=== PATIENT | female | born 2000 | race Caucasian/White ===

== ENCOUNTER 2020-08-07 17:04 | Emergency (ER) | payer OTHER ==
[~2020-08-07] VITALS: Ht 162.6 cm; Wt 100.2 kg
[2020-08-07] MEDS ORDERED: ACYCLOVIR 200 MG CAPSULE PO ONE (17:45)
--- NOTE | 2020-08-07 17:54 | PHYS DOC ---
Past History Past Medical History: No Pertinent History Past Surgical History: Other Additional Past Surgical Histo: D&C Smoking: Non-smoker Alcohol Use: None Drug Use: None Adult General Chief Complaint Chief Complaint: VAGINAL PROBLEM HPI HPI Patient is a 20-year-old female patient 3 para 1 with 1 currently 31 weeks presenting to the ED today complaining of vaginal sores that began 3 days ago. Patient states she 3 days ago she dyed her hair and used a cleaning rag to clean her body including vaginal but developed sores in her vagina only. Review of Systems Review of Systems Constitutional: Denies fever or chills [] GI: Reports . Denies abdominal pain, nausea, vomiting, bloody stools or diarrhea [] : Reports vaginal swabs denies dysuria or hematuria [] Musculoskeletal: Denies back pain or joint pain [] Integument: Denies rash or skin lesions [] Neurologic: Denies headache, focal weakness or sensory changes [] All other systems were reviewed and found to be within normal limits, except as documented in this note. Current Medications Current Medications Current Medications Medications (Trade) Dose Ordered Sig/Neto Start Time Stop Time Status Last Admin Dose Admin Acyclovir (Zovirax) 400 mg 1X ONCE 08/07/20 17:45 08/07/20 17:46 UNV Allergies Allergies Allergies Coded Allergies Type Severity Reaction Last Updated Verified No Known Drug Allergies 08/24/14 No Physical Exam Physical Exam Constitutional: Well developed, well nourished, no acute distress, non-toxic appearance. [] Abdomen: Gravid abdomen. Bowel sounds normal, soft, no tenderness, no masses, no pulsatile masses. [] Pelvic exam was not possible due to pain, exterior vagina including labia majora, labia minora are covered with grouped blisterlike lesions, some of them are open, appears to be herpes infection Skin: Warm, dry, no erythema, no rash. [] Back: No tenderness, no CVA tenderness. [] Extremities: No tenderness, no cyanosis, no clubbing, ROM intact, no edema. [] Neurologic: Alert and oriented X 3, normal motor function, normal sensory function, no focal deficits noted. [] Psychologic: Affect normal, judgement normal, mood normal. [] Current Patient Data Vital Signs Vital Signs Date Time Temp Pulse Resp B/P (MAP) Pulse Ox O2 Delivery O2 Flow Rate FiO2 1/14/21 17:12 98.2 106 16 124/68 (86) 100 EKG EKG [] Radiology/Procedures Radiology/Procedures [] Heart Score Risk Factors: Risk Factors: DM, Current or recent (<one month) smoker, HTN, HLP, family history of CAD, obesity. Risk Scores: Risk Factors: DM, Current or recent (<one month) smoker, HTN, HLP, family history of CAD, obesity. Course & Med Decision Making Course & Med Decision Making Pertinent Labs and Imaging studies reviewed. (See chart for details) This is a 20-year-old female patient 3 para 1 with 1 currently 31 weeks presenting to the ED today with vaginal lesions. Initially patient stated she used to clean her body after diarrhea. Could have caused this. Physical exam is consistent with herpes. Patient was swabbed for herpes. Patient was started on acyclovir. Spoke to patient's ASSISTANT WAREHOUSE MANAGER on-call who requested we treat her for herpes and have her follow-up in the clinic. heart rate 140s to 150s. UA+ for UTI stated on cephalaxin. Fol low-up with OB next week. Dragon Disclaimer Dragon Disclaimer This electronic medical record was generated, in whole or in part, using a voice recognition dictation system. Departure Departure: Impression: Primary Impression: Herpes genitalia Additional Impression: UTI (urinary tract infection) Disposition: 01 DC HOME SELF CARE/HOMELESS Condition: STABLE Referrals: ARCELIA SÁNCHEZ (PCP) Follow up with your OBGYN next week Patient Instructions: Genital Herpes, - Urinary Tract Infection Additional Instructions: Please follow-up with your ASSISTANT WAREHOUSE MANAGER. Please keep your vaginal area clean and dry. Do no have intercourse until seen by OBYN. Complete your antibiotics and acyclovir Scripts Acyclovir (ACYCLOVIR) 400 Mg Tablet 1 TAB PO TID, #30 TAB Prov: MUTUNGA,CHAVO INCLUSION TEACHER 08/07/20 Cephalexin (CEPHALEXIN) 500 Mg Tablet 1 TAB PO BID, #14 TAB Prov: MUTUNGA,CHAVO INCLUSION TEACHER 08/07/20 Problem Qualifiers Primary Impression: Herpes genitalia Herpes simplex infection site: unspecified site of urogenital system Qualified Codes: A60.00 - Herpesviral infection of urogenital system, unspecified Additional Impression: UTI (urinary tract infection) Urinary tract infection type: acute cystitis Hematuria presence: without hematuria Qualified Codes: N30.00 - Acute cystitis without hematuria CHAVO MCCRARY APRN Aug 07, 2020 17:54
[2020-08-07 18:06] LABS: BILIRUBIN,URINE NEG (NEG); CLARITY,URINE TURBID; COLOR,URINE YELLOW; GLUCOSE,URINE NEG (NEG)
[2020-08-07 18:07] LABS: BACTERIA,URINE MANY /HPF (0-FEW); NITRITE,URINE POS (NEG); SQUAMOUS EPITHELIAL CELL,UR MOD /LPF; UROBILINOGEN,URINE 0.2 mg/dL (0.2 mg/dL); WBC,URINE 20-40 /HPF (0-4)
[2020-08-07] MEDS ORDERED: CEPH500T PO (18:20)
[2020-08-07] MEDS ORDERED: ACYC400T PO (18:20)
[2020-08-07 18:30] VITALS: BP 129/70
[2020-08-12 08:08] LABS: HERPES SIMPLEX TYPE 1 Positive (Negative); HERPES SIMPLEX TYPE 2 Negative (Negative)
== END 2020-08-07 18:30 | disposition home or self-care (01) ==
LOC: ER 17:04
DX: O23.43 Unspecified infection of urinary tract in pregnancy, third trimester (principal); O98.513 Other viral diseases complicating pregnancy, third trimester; Z3A.31 31 weeks gestation of pregnancy
CPT/HCPCS: 36415; 81001; 87077; 87086; 87186; 87491; 87529; 87591; 99283

== ENCOUNTER 2020-10-16 17:49 | Emergency (ER) | payer OTHER ==
[~2020-10-16] VITALS: Ht 154.9 cm; Wt 59.0 kg
[~2020-10-16 17:49] MED LIST: ACYC400T PO; CEPH500T PO
[2020-10-16 18:04] VITALS: BP 124/72
[2020-10-16] MEDS ORDERED: HYDROcodone/APAP 5/325MG 1 TAB TABLET PO ONE (18:30)
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
[2020-10-16] MEDS ORDERED: IBUP600T16 PO (19:23)
== END 2020-10-16 19:29 | disposition home or self-care (01) ==
LOC: ER 17:49
DX: S02.2XXA Fracture of nasal bones, initial encounter for closed fracture (principal); S00.83XA Contusion of other part of head, initial encounter; W21.02XA Struck by soccer ball, initial encounter; Y93.66 Activity, soccer; Y92.89 Other specified places as the place of occurrence of the external cause; Y99.8 Other external cause status
CPT/HCPCS: 70450; 70486; 99285-25

== ENCOUNTER 2021-07-23 19:41 | Emergency (ER) | payer OTHER ==
[~2021-07-23] VITALS: Ht 154.9 cm; Wt 85.3 kg
[~2021-07-23 19:41] MED LIST changes: +ACYC-12 PO; -ACYC400T PO; +IBUP600T16 PO
--- NOTE | 2021-07-23 19:56 | PHYS DOC ---
Past History Past Medical History: No Pertinent History Past Surgical History: , Other Additional Past Surgical Histo: x2, DNC Smoking: Non-smoker Alcohol Use: None Drug Use: None Adult General HPI HPI Patient is a 21-year-old female who presents with nausea and vomiting. States she is about 2 months and has an OB appointment next week. States she did have some nausea and vomiting in her first 2 pregnancies. Denies any recent travel, traumas, illnesses, fevers, chest pain, shortness of breath, abdominal pain, dysuria, hematuria, diarrhea or blood in the stool. Denies any vaginal bleeding, discharge or pain. States she does have a history of chlamydia last year that was treated. States she does not feel like that is what is going on now. Review of Systems Review of Systems Review of systems otherwise unremarkable except noted in HPI Allergies Allergies Allergies Coded Allergies Type Severity Reaction Last Updated Verified No Known Drug Allergies 08/24/14 No Physical Exam Physical Exam Constitutional: Well developed, well nourished, no acute distress, non-toxic appearance. [] HENT: Normocephalic, atraumatic, bilateral external ears normal, oropharynx moist, no oral exudates, nose normal. [] Eyes: conjunctiva normal, no discharge. [] Neck: Normal range of motion, no tenderness, supple, no stridor. [] Cardiovascular:Heart rate regular rhythm, no murmur [] Lungs & Thorax: Bilateral breath sounds clear to auscultation [] Abdomen: soft, no tenderness, no masses, no pulsatile masses. [] Skin: Warm, dry, no erythema, no rash. [] Back: No tenderness, no CVA tenderness. [] Extremities: No tenderness, no cyanosis, no clubbing, ROM intact, no edema. [] Neurologic: Alert and oriented X 3, normal motor function, normal sensory function, no focal deficits noted. [] Psychologic: Affect normal, judgement normal, mood normal. [] EKG EKG [] Radiology/Procedures Radiology/Procedures [] Heart Score C/O Chest Pain: No Risk Factors: Risk Factors: DM, Current or recent (<one month) smoker, HTN, HLP, family history of CAD, obesity. Risk Scores: Risk Factors: DM, Current or recent (<one month) smoker, HTN, HLP, family history of CAD, obesity. Course & Med Decision Making Course & Med Decision Making Patient is a 21-year-old female presents with nausea and vomiting Vital signs not concerning. Physical exam noted above. Given antiemetics. Patient deferred speculum exam but stated, you can go ahead and test for gonorrhea and chlamydia but I do not have it. negative. UA pending. Patient states that her baby is are at home and they are acting up and she needs to leave. Stated that she did not want to be treated currently for STIs she does not think she has any and wanted to be contacted if she did at that time she would take treatment. States she did have time to wait in the emergency department for her urinalysis either and if she has a UTI to send her prescription into [facility]. On reassessment patient stated that nausea had completely resolved and she was ready to go home and needed to get home to her babies because they were acting up. Dragon Disclaimer Dragon Disclaimer This electronic medical record was generated, in whole or in part, using a voice recognition dictation system. Departure Departure: Impression: Primary Impression: Disposition: 01 HOME / SELF CARE / HOMELESS Condition: GOOD Referrals: ARCELIA SÁNCHEZ (PCP) Patient Instructions: ABCs of , Nausea and Vomiting Additional Instructions: Thank you for coming into the emergency department tonight allowing us to take care of you. Please read the attached information carefully to go back over some of the things we discussed. Please take your nausea medicine as prescribed and only as needed. Please follow-up in the morning with your primary care physician and/or your CLINICAL RESEARCH TECHNICIAN to set up follow-up appointments and confirm your upcoming OB appointment to discuss ED visit. Your gonorrhea and Chlamydia should result in the next 24 to 48 hours. If either of these are positive you will be contacted for treatment. You were given a prescription for antibiotics. If you do have a urinary tract infection you will be called and made aware and at that time you can fill these. Scripts Cephalexin (KEFLEX) 500 Mg Capsule 1 CAP PO BID for UTI for 7 Days, #13 CAP Prov: USMAN CHRISTIAN MD 07/23/21 Ondansetron (ONDANSETRON ODT) 4 Mg Tab.rapdis 4 MG PO TID for Nausea/Vomiting for 5 Days, #9 TAB 2 Refills Prov: USMAN CHRISTIAN MD 07/23/21 USMAN CHRISTIAN MD Jul 23, 2021 19:56
[2021-07-23 20:06] VITALS: BP 110/68
[2021-07-23] MEDS ORDERED: METOCLOPRAMIDE HCL 10 MG/2 ML VIAL. ONE (20:13)
[2021-07-23] MEDS ORDERED: diphenhydrAMINE HCL 25 MG CAPSULE PO ONE (20:15)
[2021-07-23] MEDS ORDERED: METOCLOPRAMIDE HCL 10 MG/2 ML VIAL. IM ONE (20:15)
[2021-07-23] MEDS ORDERED: ONDA4TAB12 PO (20:16)
[2021-07-23] MEDS ORDERED: CEPH500C PO (20:57)
[2021-07-23 20:59] LABS: BILIRUBIN,URINE NEG (NEG); CLARITY,URINE HAZY; COLOR,URINE YELLOW; GLUCOSE,URINE NEG (NEG)
[2021-07-23 21:00] LABS: BACTERIA,URINE MOD /HPF (0-FEW); NITRITE,URINE POS (NEG); RBC,URINE OCC /HPF (0-2); SQUAMOUS EPITHELIAL CELL,UR MANY /LPF; WBC,URINE 20-40 /HPF (0-4)
[2021-07-23] MEDS ORDERED: CEPHALEXIN 250 MG CAPSULE PO ONE (21:30)
== END 2021-07-23 21:15 | disposition home or self-care (01) ==
LOC: ER 19:41
DX: O21.9 Vomiting of pregnancy, unspecified (principal); Z3A.01 Less than 8 weeks gestation of pregnancy; Z98.890 Other specified postprocedural states
CPT/HCPCS: 81001; 81025; 87086; 87491; 87591; 96372; 99283; J2765; 36415; 87077; 87186